=== PATIENT | male | born 1955 | race Two or more races ===

== ENCOUNTER → 2023-08-03 | Day surgery (SDC) | payer OTHER ==
[2023-07-29 08:56] LABS: URINE APPEARANCE Clear; URINE BILIRRUBIN Negative (NEGATIVE); URINE BLOOD Negative; URINE COLOR Yellow; URINE GLUCOSE Negative (NEGATIVE); URINE LEUKOCYTE Negative; URINE NITRATE Negative; URINE PROTEIN Negative (NEGATIVE); URINE UROBILINOGEN 0.2 E.U./dl
[2023-07-29 09:00] LABS: HEMATOCRIT 38.5 % (39.0-48.0); HEMOGLOBIN 13.3 g/dL (13-16.00); MEAN CELL VOLUME 88.3 fL (80.0-100.00); MEAN CORPUSCULAR HEMOGLOBIN 30.5 pg (27.00-32.0); MEAN CORPUSCULAR HGB CONC 34.5 g/dl (32.0-36.0); PLATELET COUNT 246 K/uL (150-450); RED BLOOD COUNT 4.36 M/uL (4.00-6.00); RED CELL DISTRIBUTION WIDTH 13.9 % (11.5-14.5)
[2023-07-29 09:09] LABS: URINE BACTERIA 0 uL (0.0-1933); URINE EPITHELIAL CELLS 0.1 uL (0.0-38.8); URINE RBC 1.5 uL (0.0-20.8); URINE WBC 0.7 uL (0.0-23.2)
[2023-07-29 09:21] LABS: BILIRUBIN TOTAL 0.69 mg/dL (0.3-1.2); CALCIUM 9.4 mg/dL (8.5-10.1); CREATININE SERUM 1.15 mg/dL (0.70-1.30); GFR 62.87; GLOBULINA 3.8 G/DL (2.4-3.5); POTASSIUM 4.72 mEq/L (3.5-5.1); TOTAL PROTEIN 7.8 gm/dL (6.4-8.2)
[2023-07-29 09:27] LABS: INR 1.07; PARTIAL THROMBOPLASTIN TIME 30.9 SECONDS (22.0-34.0); PROTHROMBIN TIME 11.2 SECONDS (9.0-11.5)
[~2023-08-03] VITALS: Ht 175.3 cm; Wt 113.4 kg
[~2023-08-03] MED LIST: IRBESARTAN300 MG PO; SYNTHROID200 MCG PO
== END | disposition home or self-care (01) ==
LOC: ADM 07-29 09:30 → CIR.AMB 05:55
PROVIDERS: ATTEND Surgery
DX: K80.10 Calculus of gallbladder with chronic cholecystitis without obstruction (principal); K82.1 Hydrops of gallbladder; I10 Essential (primary) hypertension; E03.9 Hypothyroidism, unspecified; Z20.822 Contact with and (suspected) exposure to COVID-19